=== PATIENT | female | born 1955 | race Caucasian/White ===

== ENCOUNTER 2016-12-12 22:29 | Emergency (ER) | payer BC ==
[2016-12-12 22:40] VITALS: BP 132/88
[2016-12-12] MEDS ORDERED: Acetaminophen TAB* 325 MG PO ONE (23:44)
[2016-12-13] MEDS ORDERED: Ondansetron ODT TAB* 4 MG PO ONE ×2 (00:31→01:45)
[2016-12-13] MEDS ORDERED: traMADol TAB* 50 MG PO ONE ×2 (00:31→01:45)
--- NOTE | 2016-12-13 00:36 | ED ---
Upper Extremity Pain - HPI Summary HPI Summary: 61F presents with right wrist pain today. Her heel got caught in the ground and she fell onto her right wrist. There is a deformity to the right wrist. She denies any numbness or tingling. She is right handed. She is on vacation from [place] for a wedding. She has PMH of thyroid goiters and HTN. She has not taken anything for pain. - History of Current Complaint Chief Complaint: EDExtremityUpper Stated Complaint: FALL//RIGHT WRIST PAIN Time Seen by Provider: 12/12/16 23:21 - Allergies/Home Medications Allergies/Adverse Reactions: Allergies Allergy/AdvReac Type Severity Reaction Status Date / Time Sulfa Antibiotics Allergy Rash Verified 12/12/16 22:37 Home Medications: Home Medications Aspirin Low Dose CHEW TAB* [Aspirin Low Dose TAB*] 81 mg PO DAILY 12/12/16 [ History Confirmed 12/12/16] Levothyroxine TAB* [Synthroid TAB*] 112 mcg PO 0800 12/12/16 [History Confirmed 12/12/16] Lisinopril TAB* [Prinivil TAB*] 10 mg PO DAILY 12/12/16 [History Confirmed 12/12] PMH/Surg Hx/FS Hx/Imm Hx Endocrine/Hematology History: Reports: Hx Thyroid Disease Cardiovascular History: Reports: Hx Hypertension Infectious Disease History: No Infectious Disease History: Denies: Traveled Outside the [place] in Last 30 Days - Family History Known Family History: Positive: Cardiac Disease - Social History Alcohol Use: None Substance Use Type: Reports: None Smoking Status (MU): Never Smoked Tobacco Review of Systems Negative: Fever Negative: Chest Pain Negative: Shortness Of Breath Positive: Other - right wrist deformity All Other Systems Reviewed And Are Negative: Yes Physical Exam Triage Information Reviewed: Yes Vital Signs On Initial Exam: Initial Vitals Temp Pulse Resp BP Pulse Ox 98.7 F 105 22 132/88 95 12/12/16 22:37 12/12/16 22:37 12/12/16 22:37 12/12/16 22:37 12/12/16 22:37 Vital Signs Reviewed: Yes Appearance: Positive: Pain Distress Skin: Positive: Warm, Dry Head/Face: Positive: Normal Head/Face Inspection Eyes: Positive: Normal, EOMI, CONCHITA, Conjunctiva Clear ENT: Positive: Normal ENT inspection, Pharynx normal, TMs normal Respiratory/Lung Sounds: Positive: Clear to Auscultation, Breath Sounds Present Cardiovascular: Positive: Normal, RRR Musculoskeletal: Positive: Limited @ - wrist, Other - nontender elbow, good pulses, deformity to right wrist with edema, neg snuff box tenderness, sensation intact - Burt Coma Scale Coma Scale Total: 15 Procedures - Splinting Location: wrist right Hand-Made Type: fiberglass Splint: sugar-tong Pre-Proc Neuro Vasc Exam: normal Post-Proc Neuro Vasc Exam: normal - Joint Reduction Joint Reduction Site: wrist (R) Reduction Attempts: 1 - placed in finger traps with weights Pre-Procedure NV Exam: Yes Diagnostics - Vital Signs Vital Signs Temp Pulse Resp BP Pulse Ox 12/12/16 22:38 98.7 F 105 22 132/88 100 12/12/16 22:37 98.7 F 105 22 132/88 95 - Laboratory Lab Statement: Any lab studies that have been ordered have been reviewed, and results considered in the medical decision making process. - Radiology wrist Xray Interpretation: Positive (See Comments) - radius and ulna fracture Radiology Interpretation Completed By: ED Physician Course/Dx - Course Course Of Treatment: 61F presents with right wrist pain today. Her heel got caught in the ground and she fell onto her right wrist. There is a deformity to the right wrist. She denies any numbness or tingling. She is right handed. She is on vacation from [place] for a wedding. She has PMH of thyroid goiters and HTN. She has not taken anything for pain. xray shows radius and ulna fx. did hematoma block and placed in finger traps and patient says that feels better. placed in sugar tong splint. told to follow up with ortho. patient understands and agrees with plan. - Diagnoses Differential Diagnosis/HQI/PQRI: Positive: Fracture (Closed), Strain, Sprain Provider Diagnoses: Wrist fracture Discharge - Discharge Plan Condition: Good Disposition: HOME Prescriptions: Ondansetron ODT TAB* [Zofran 4 MG Odt TAB*] 4 mg PO Q6H PRN #20 tab.odt PRN Reason: Nausea traMADol TAB* [Ultram*] 50 mg PO Q6HR PRN #20 tab MDD 4 PRN Reason: Pain Patient Education Materials: Wrist Fracture in Adults (ED) Referrals: Narayan Davis MD [Medical Doctor] - Non Staff,Doctor [Primary Care Provider] - Additional Instructions: Keep elbow in sling as needed Keep splint on area and keep dry Call ortho office Wednesday to set up appointment for follow up Use ibuprofen for pain every 6 hours and use narcotic for breakthrough pain Ice, elevate Return to ED if develop numbness or tingling or any new or worsening symptoms
[2016-12-13] MEDS ORDERED: Lidocaine 1%* 5 ML VIAL ONE (00:39)
[2016-12-13] MEDS ORDERED: Ketorolac INJ* 60 MG/2 ML VIAL IM ONE (01:04)
--- NOTE | 2016-12-13 11:44 | RAD ---
INDICATION: RIGHT wrist pain post fall. COMPARISON: None. TECHNIQUE: AP, lateral, and oblique views RIGHT wrist. AP and lateral views RIGHT forearm. REPORT: Significantly impacting distal metaphyseal fracture of the radius with extension to the distal radioarticular surface with resulting articular surface discontinuity and incongruity. Disproportionate dorsal impaction with resulting dorsal tilt of the distal radioarticular surface. Negative for dislocation. Associated ulnar styloid avulsion without significant displacement. Severe soft tissue swelling about the distal forearm and wrist. Negative for more proximal fracture of the radius or ulna. Normal articular alignment at the elbow and proximal radioulnar joint. IMPRESSION: Comminuted impacted intra-articular fracture of the distal radius and associated ulnar styloid avulsion.
== END 2016-12-13 02:21 | disposition home or self-care (01) ==
LOC: ED 22:29
DX: S52.571A Other intraarticular fracture of lower end of right radius, initial encounter for closed fracture (principal); S52.614A Nondisplaced fracture of right ulna styloid process, initial encounter for closed fracture; W19.XXXA Unspecified fall, initial encounter; Y93.9 Activity, unspecified; Y92.9 Unspecified place or not applicable; Z88.2 Allergy status to sulfonamides; E07.9 Disorder of thyroid, unspecified; I10 Essential (primary) hypertension; Z79.82 Long term (current) use of aspirin
CPT/HCPCS: 25605; 96372; 99282; A9270-GY; J1885